=== PATIENT | female | born 1995 | race Caucasian/White ===

== ENCOUNTER 2016-07-02 18:42 | Emergency (ER) | payer BC ==
[~2016-07-02] VITALS: Ht 162.6 cm; Wt 93.9 kg
--- NOTE | ~2016-07-02 | EKG ---
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
[2016-07-02] MEDS ORDERED: AZITHROMYCIN 2250 MG PO (19:10)
[2016-07-02 19:22] LABS: ABSOLUTE NEUTROPHILS 7.1 thou/uL (1.4-8.2); BASOPHILS 0.6 % (0.0-2.0); EOSINOPHILS 2.2 % (0.0-3.0); HEMATOCRIT 43.4 % (37.0-47.0); HEMOGLOBIN 14.8 gm/dL (12.0-15.0); MCH 29.7 pg (26.0-34.0); MCHC 34.2 % (28.0-37.0); MCV 86.8 fL (80.0-100.0); MONOCYTES 5.8 % (1.0-8.0); PLATELET COUNT 342 thou/uL (150-400); POLYS 59.4 % (36.0-66.0); RBC 4.99 mil/uL (4.20-5.00); RDW 13.7 % (10.5-14.5); WBC 11.9 thou/uL (4.0-11.0)
[2016-07-02 19:25] LABS: MANUAL DIFF NO
[2016-07-02 19:32] LABS: CALCIUM 9.4 mg/dL (8.5-10.1); CREATININE 0.9 mg/dL (0.6-1.3); POTASSIUM 3.9 mmol/L (3.5-5.1)
[2016-07-02 19:38] LABS: ALBUMIN 3.8 g/dL (3.4-5.0); TOTAL BILIRUBIN 0.2 mg/dL (<0.1-1.0); TOTAL PROTEIN 7.6 g/dL (6.4-8.2)
[2016-07-02 19:58] VITALS: BP 98/60
== END 2016-07-02 19:58 | disposition home or self-care (01) ==
LOC: ER 18:42
PROVIDERS: Emergency Medicine
DX: R55 Syncope and collapse (principal); F17.210 Nicotine dependence, cigarettes, uncomplicated